=== PATIENT | female | born 1990 | race Two or more races ===

== ENCOUNTER 2017-02-01 02:43 | Emergency (ER) | payer MEDICAID ==
[~2017-02-01] VITALS: Ht 162.6 cm; Wt 68.0 kg
[2017-02-01 02:56] VITALS: BP 111/72
[2017-02-01] MEDS ORDERED: PENICILLIN G BENZ 1200000 UNITS/2 ML SYRG IM ONE (04:30)
== END 2017-02-01 05:02 | disposition home or self-care (01) ==
LOC: ER 02:43
DX: J02.9 Acute pharyngitis, unspecified (principal); H92.01 Otalgia, right ear; R51 Headache
CPT/HCPCS: 96372; 99283; J0561

== ENCOUNTER 2018-07-24 11:41 | Emergency (ER) | payer MEDICAID ==
[~2018-07-24] VITALS: Ht 160 cm; Wt 74.8 kg
[2018-07-24 12:16] LABS: Urine Bacteria FEW /hpf (None Seen); Urine Blood Negative /uL (Negative); Urine Specific Gravity 1.016 (1.001-1.035); Urine WBC 1 /hpf (0 - 5)
[2018-07-24 14:35] VITALS: BP 120/81
== END 2018-07-24 14:37 | disposition home or self-care (01) ==
LOC: ER 11:41
DX: K29.70 Gastritis, unspecified, without bleeding (principal)
CPT/HCPCS: 74176; 81001; 81025